=== PATIENT | female | born 1965 | race African-American/Black ===

== ENCOUNTER 2016-06-28 22:15 | Inpatient (IN) | payer OTHER ==
[2016-06-28 22:38] VITALS: BMI 27.8
--- NOTE | 2016-06-28 22:57 | HP ---
COWS - Scale Resting Pulse: 1= [place] 81-100 Sweatin= Chills/Flushing Restless Observation: 5= Unable to Sit Still Pupil Size: 1= Pupils >than Normal Bone or Joint Aches: 2= Severe Diffuse Aches Runny Nose/ Eye Tearin= None GI Upset > 30mins: 1= Stomach Cramp Tremor Observation: 2= Slight Tremor Visible Yawning Observation: 0= None Anxiety or Irritability: 4=Extreme Anxiety Goose Flesh Skin: 0=Smooth Skin COWS Score: 17 CIWA Score - CIWA Score Nausea/Vomitin-Mild Nausea/No Vomiting Muscle Tremors: 2 Anxiety: 4-Mod. Anxious/Guarded Agitation: 4-Moderately Restless Paroxysmal Sweats: 2 Orientation: 1-Uncertain about Date Tacttile Disturbances: 0-None Auditory Disturbances: 0-None Visual Disturbances: 0-None Headache: 1-Very Mild CIWA-Ar Total Score: 15 Admission ROS BHS - HPI Chief Complaint: WITHDRAWAL SX'S. SEEKING DETOX Allergies/Adverse Reactions: Allergies Allergy/AdvReac Type Severity Reaction Status Date / Time No Known Allergies Allergy Verified 06/28/16 22:46 History of Present Illness: 51 Y.O FEMALE WITH H/O ALCOHOLISM AND OPIATE DEPENDENCE HERE FOR DETOX TXMENT. CLIENT DENIES AND RECENT DETOX/ REHAB SERVICES. STATES LONGEST CLEAN 4 YEARS RELAPSING 1.5 YEARS AGO. CLIENT INFORMED EXPECTED LOS IS 7 DAYS. CLIENT VERBALIZED UNDERSTANDING AND AGREES. Exam Limitations: No Limitations - Ebola screening Have you traveled outside of the country in the last 21 days: No Have you had contact with anyone from an Ebola affected area: No Have you been sick,other than usual withdrawal symptoms: No Do you have a fever: No - Review of Systems Constitutional: Chills, Malaise, Night Sweats EENT: reports: No Symptoms Reported Respiratory: reports: No Symptoms reported Cardiac: reports: No Symptoms Reported GI: reports: Abdominal cramping : reports: No Symptoms Reported Musculoskeletal: reports: No Symptoms Reported Integumentary: reports: No Symptoms Reported Neuro: reports: No Symptoms reported Endocrine: reports: No Symptoms Reported Hematology: reports: No Symptoms Reported Other Systems: Reviewed and Negative Patient History - Patient Medical History Hx Anemia: No Hx Asthma: No Hx Chronic Obstructive Pulmonary Disease (COPD): No Hx Cancer: No Hx Cardiac Disorders: No Hx Hypertension: No Hx Hypercholesterolemia: No Hx Pacemaker: No HX Cerebrovascular Accident: No Hx Seizures: No Hx Diabetes: No Hx Gastrointestinal Disorders: No Hx Liver Disease: No Hx Genitourinary Disorders: No Hx Sexually Transmitted Disorders: No Hx Renal Disease (ESRD): No Hx Human Immunodeficiency Virus (HIV): No Hx Hepatitis C: No Hx Depression: Yes (SEROQUEL) Hx Suicide Attempt: No Hx Schizophrenia: No Other Medical History: DENIES - Patient Surgical History Past Surgical History: No Hx Neurologic Surgery: No Hx Cataract Extraction: No Hx Cardiac Surgery: No Hx Lung Surgery: No Hx Breast Surgery: No Hx Breast Biopsy: No Hx Abdominal Surgery: No Hx Appendectomy: No Hx Cholecystectomy: No Hx Genitourinary Surgery: No Hx Section: No Hx Orthopedic Surgery: No Anesthesia Reaction: No - PPD History Previous Implant?: Yes Documented Results: Negative w/o proof Implanted On Prior [facility] Admission?: No PPD to be Administered?: Yes - Reproductive History Patient is a Female of Child Bearing Age (11 -55 yrs old): Yes LMP comment: MENAPAUSE Patient : No - Smoking Cessation Smoking history: Current every day smoker Have you smoked in the past 12 months: Yes Aproximately how many cigarettes per day: 15 Cigars Per Day: 0 Hx Chewing Tobacco Use: No Initiated information on smoking cessation: Yes 'Breaking Loose' booklet given: 06/28/16 - Substance & Tx. History Hx Alcohol Use: Yes Hx Substance Use: Yes Substance Use Type: Alcohol, Cocaine, Heroin, Opiates (OXY), Tranquilizers (TCA) Hx Substance Use Treatment: Yes ([facility]) - Substances Abused Heroin Route: Inhalation Frequency: Daily Amount used: 5 BAGS Age of first use: 30 Date of Last Use: 06/28/16 Alcohol Route: Oral Frequency: Daily Amount used: 5 PINTS OF VODKA Age of first use: 32 Date of Last Use: 06/28/16 Cocaine Route: Smoking Frequency: Daily Amount used: $20 Age of first use: 35 Date of Last Use: 06/26/16 Family Disease History - Family Disease History Family Disease History: [place]: Father (), Mother (BONE CA ) Admission Physical Exam BHS - Vital Signs Vital Signs: Vital Signs - 24 hr 06/28/16 22:36 Temperature 97.0 F L Pulse Rate 94 H Respiratory 20 Rate Blood Pressure 151/90 - Physical General Appearance: Yes: Appropriately Dressed, Irritable, Anxious HEENTM: Yes: Other (MISSING TEETH) Respiratory: Yes: Chest Non-Tender, Lungs Clear, Normal Breath Sounds, No Respiratory Distress, No Accessory Muscle Use Neck: Yes: No masses,lesions,Nodules, Supple, Trachea in good position Breast: Yes: Breast Exam Deferred Cardiology: Yes: Regular Rhythm, Regular Rate, S1, S2 Abdominal: Yes: Normal Bowel Sounds, Non Tender, Flat, Soft Genitourinary: Yes: Within Normal Limits Back: Yes: Normal Inspection Musculoskeletal: Yes: full range of Motion, Gait Steady Extremities: Yes: Normal Capillary Refill, Normal Range of Motion, Non-Tender, Tremors Neurological: Yes: sfdc solution architect II-XII NML intact, Alert, Motor Strength 5/5 Integumentary: Yes: Normal Color, Warm, Moist (PALMS) Lymphatic: Yes: Within Normal Limits - Diagnostic (1) Nicotine dependence Current Visit: Yes Status: Acute Qualifiers: Nicotine product type: cigarettes Substance use status: uncomplicated Qualified Code(s): F17.210 - Nicotine dependence, cigarettes, uncomplicated (2) Alcohol dependence with uncomplicated withdrawal Current Visit: Yes Status: Chronic (3) Opioid dependence with withdrawal Current Visit: Yes Status: Chronic (4) Cocaine dependence, uncomplicated Current Visit: Yes Status: Chronic Cleared for Admission [facility] - Detox or Rehab [facility] Level of Care: Medically Managed Detox Regimen/Protocol: Methadone/Librium [facility] Breath Alcohol Content Breath Alcohol Content: 0 Urine Pregancy Test - Result Urine Test Results: Negative- NO Line Present Urine Drug Screen - Results Drug Screen Negative: No Urine Drug Screen Results: DAISY-Cocaine, OPI-Opiates, TCA-Tricyclic Antidepress, OXY-Oxycodone
[2016-06-28] MEDS ORDERED: P-EPHED 60MG/TRIPROLIDI 2.5MG TABLET PO PRN (23:09)
[2016-06-28] MEDS ORDERED: LOPERAMIDE HCL 2 MG CAPSULE PO PRN (23:09)
[2016-06-28] MEDS ORDERED: MAGNESIUM CITRATE 300 ML BOTTLE PO PRN (23:09)
[2016-06-28] MEDS ORDERED: NICOTINE POLACRILEX 2 MG GUM BUC PRN (23:09)
[2016-06-28] MEDS ORDERED: chlordiazePOXIDE HCL 25 MG CAPSULE PO PRN (23:09)
[2016-06-28] MEDS ORDERED: MAG HYDROX/AL HYDROX/SIMETH 30 ML UNIT-DOSE CUP PO PRN (23:09)
[2016-06-28] MEDS ORDERED: IBUPROFEN 400 MG TABLET (FP) PO PRN (23:09)
[2016-06-28] MEDS ORDERED: MAGNESIUM HYDROX 2400MG/30ML ORAL SUSPENSION 30 ML CUP PO PRN (23:09)
[2016-06-28] MEDS ORDERED: METHADONE HCL 10 MG TABLET (FOR DETOX USE ONLY) PO ONE (23:09)
[2016-06-28] MEDS ORDERED: diphenhydrAMINE HCL 50 MG CAPSULE PO PRN (23:09)
[2016-06-28] MEDS ORDERED: MENTHOL/PHENOL 1 EACH UD MM PRN (23:09)
[2016-06-28] MEDS ORDERED: guaiFENesin/D-METHORPHAN HB 10 ML UNIT-DOSE CUPS PO PRN (23:09)
[2016-06-28] MEDS: chlordiazePOXIDE HCL 25 MG CAPSULE PO SCH (23:47)
[2016-06-28] MEDS: METHADONE HCL 10 MG TABLET (FOR DETOX USE ONLY) PO ONE (23:48)
[2016-06-29] MEDS: chlordiazePOXIDE HCL 25 MG CAPSULE PO SCH ×4 (06:01→22:22)
--- NOTE | 2016-06-29 08:09 | CONSULT ---
[facility] Psychiatric Consult - Data Date of interview: 06/29/16 Admission source: [facility] Identifying data: This is 51 years old female with history of Bi-polar Disorder , history of Psychiatric hospitalization, intoxicated with: Alcohol and Cocaine Substance Abuse History: - Smoking Cessation. Smoking history: Current every day smoker. Have you smoked in the past 12 months: Yes. Aproximately how many cigarettes per day: 15. Cigars Per Day: 0. Hx Chewing Tobacco Use: No. Initiated information on smoking cessation: Yes. 'Breaking Loose' booklet given : 06/28/16. - Substance & Tx. History. Hx Alcohol Use: Yes. Hx Substance Use : Yes. Substance Use Type: Alcohol, Cocaine, Heroin, Opiates (OXY), Tranquilizers (TCA). Hx Substance Use Treatment: Yes ([facility]). - Substances Abused. Heroin. Route: Inhalation. Frequency: Daily. Amount used: 5 BAGS. Age of first use: 30. Date of Last Use: 06/28/16. Alcohol. Route: Oral. Frequency: Daily. Amount used: 5 PINTS OF VODKA. Age of first use: 32. Date of Last Use: 06/28/16. Cocaine. Route: Smoking. Frequency: Daily. Amount used: $20. Age of first use: 35. Date of Last Use: 06/26/16 Medical History: Denies significant medical issues Psychiatric History: Patient reports to carry Bipolar Disorder with most recent psychiatric hospitalization on more then 5 years ago, reports currently stable on: Trazodone 100mg po qhs. Seroquel 100mg po qhs. Gabapentin 300mg po tid Physical/Sexual Abuse/Trauma History: Denies Additional Comment: Trazodone 100mg po qhs. Seroquel 100mg po qhs. Gabapentin 300mg po tid Mental Status Exam - Mental Status Exam Alert and Oriented to: Person Cognitive Function: Fair Patient Appearance: Well Groomed Mood: Suspicious Affect: Mood Congruent Patient Behavior: Cooperative Speech Pattern: Appropriate Voice Loudness: Normal Thought Process: Goal Oriented Thought Disorder: Being Controlled Hallucinations: Denies Suicidal Ideation: Denies Homicidal Ideation: Denies Insight/Judgement: Fair Sleep: Difficulty falling asleep Appetite: Fair Muscle strength/Tone: Normal Gait/Station: Normal Additional Comments: Trazodone 100mg po qhs. Seroquel 100mg po qhs. Gabapentin 300mg po tid Psychiatric Findings - Problem List ([place] 1, 2,3) (1) Nicotine dependence Current Visit: Yes Status: Acute Qualifiers: Nicotine product type: cigarettes Substance use status: uncomplicated Qualified Code(s): F17.210 - Nicotine dependence, cigarettes, uncomplicated (2) Alcohol dependence with uncomplicated withdrawal Current Visit: Yes Status: Chronic (3) Cocaine dependence, uncomplicated Current Visit: Yes Status: Chronic (4) Opioid dependence with withdrawal Current Visit: Yes Status: Chronic (5) Bipolar disorder Current Visit: Yes Status: Acute (6) Drug-induced mood disorder Current Visit: Yes Status: Acute - Initial Treatment Plan Initial Treatment Plan: Trazodone 100mg po qhs. Seroquel 100mg po qhs. Gabapentin 300mg po tid
[2016-06-29] MEDS ORDERED: METHADONE HCL 10 MG TABLET (FOR DETOX USE ONLY) PO SCH (10:00)
[2016-06-29 10:12] LABS: MCH 29.3 pg (25.7-33.7); MCHC 33.5 g/dl (32.0-36.0); MEAN CELL VOLUME 87.3 fl (80-96); MEAN PLT VOLUME 7.5 fl (7.5-11.1); PLATELET COUNT 143 K/MM3 (134-434); WHITE BLOOD COUNT 3.4 K/mm3 (4.0-10.0)
[2016-06-29] MEDS: PRENATAL VITAMINS W/ FOLIC ACID TABLET (FP) PO SCH (10:13)
[2016-06-29] MEDS: NICOTINE 14 MG/24 HOURS TOPICAL PATCH TD SCH (10:13)
[2016-06-29] MEDS: QUEtiapine FUMARATE 100 MG TABLET (FP) PO SCH (10:13)
[2016-06-29 10:44] LABS: ALBUMIN 2.8 g/dl (3.4-5.0); ALK PHOS 64 U/L (45-117); ANION GAP 8 (8-16); BILIRUBIN,TOTAL 0.3 mg/dL (0.2-1.0); CALCIUM 8.6 mg/dL (8.5-10.1); CO2 31 mmol/L (21-32); CREATININE 0.7 mg/dL (0.55-1.02); GLUCOSE,RANDOM 70 mg/dL (74-106); SGOT/AST 13 U/L (15-37); SGPT/ALT 21 U/L (12-78); TOT PROT 5.1 g/dl (6.4-8.2)
--- NOTE | 2016-06-29 12:00 | PN ---
S CIWA - CIWA Score Nausea/Vomitin-Mild Nausea/No Vomiting Muscle Tremors: 4-Moderate,w/Arms Extend Anxiety: 2 Agitation: 1-Slight > Activity Paroxysmal Sweats: 3 Orientation: 0-Oriented Tacttile Disturbances: 2-Mild Itch/Numbness/Burn Auditory Disturbances: 1-Very Mild Visual Disturbances: 0-None Headache: 0-None Present CIWA-Ar Total Score: 14 BHS COWS - Scale Resting Pulse: 0= [place] 80 or Below Sweatin=Flushed/Facial Moisture Restless Observation: 0= Sits Still Pupil Size: 0= Normal to Room Light Bone or Joint Aches: 2= Severe Diffuse Aches Runny Nose/ Eye Tearin= Nasal Congestion GI Upset > 30mins: 0= None Tremor Observation of Outstretched Hands: 2= Slight Tremor Visible Yawning Observation: 1= 1-2x During Session Anxiety or Irritability: 2=Irritable/Anxious Goose Flesh Skin: 3=Piloerection COWS Score: 13 S Progress Note (SOAP) Subjective: Sweating, Tremors, Body Aches. Objective: PT. A & O X 2 (Pt. disoriented about Location). 06/29/16 11:57 Vital Signs Temperature 96.8 F L 06/29/16 09:37 Pulse Rate 76 06/29/16 09:37 Respiratory Rate 16 06/29/16 09:37 Blood Pressure 137/60 06/29/16 09:37 O2 Sat by Pulse Oximetry (%) Laboratory Last Values WBC 3.4 K/mm3 (4.0-10.0) L 06/29/16 06:45 RBC 3.75 M/mm3 (3.60-5.2) 06/29/16 06:45 Hgb 11.0 GM/dL (10.7-15.3) 06/29/16 06:45 Hct 32.7 % (32.4-45.2) 06/29/16 06:45 MCV 87.3 fl (80-96) 06/29/16 06:45 MCHC 33.5 g/dl (32.0-36.0) 06/29/16 06:45 RDW 14.0 % (11.6-15.6) 06/29/16 06:45 Plt Count 143 K/MM3 (134-434) 06/29/16 06:45 MPV 7.5 fl (7.5-11.1) 06/29/16 06:45 Sodium 142 mmol/L (136-145) 06/29/16 06:45 Potassium 3.6 mmol/L (3.5-5.1) 06/29/16 06:45 Chloride 103 mmol/L (98-107) 06/29/16 06:45 Carbon Dioxide 31 mmol/L (21-32) 06/29/16 06:45 Anion Gap 8 (8-16) 06/29/16 06:45 BUN 10 mg/dL (7-18) 06/29/16 06:45 Creatinine 0.7 mg/dL (0.55-1.02) 06/29/16 06:45 Creat Clearance w eGFR > 60 (>60) 06/29/16 06:45 Random Glucose 70 mg/dL (74-106) L 06/29/16 06:45 Calcium 8.6 mg/dL (8.5-10.1) 06/29/16 06:45 Total Bilirubin 0.3 mg/dL (0.2-1.0) 06/29/16 06:45 AST 13 U/L (15-37) L 06/29/16 06:45 ALT 21 U/L (12-78) 06/29/16 06:45 Alkaline Phosphatase 64 U/L (45-117) 06/29/16 06:45 Total Protein 5.1 g/dl (6.4-8.2) L 06/29/16 06:45 Albumin 2.8 g/dl (3.4-5.0) L 06/29/16 06:45 RPR Titer Nonreactive (NONREACTIVE) 06/29/16 06:45 LABS NOTED. Assessment: 06/29/16 11:58 WITHDRAWAL SYMPTOMS. Plan: CONTINUE DETOX.
[2016-06-29 14:29] LABS: URINE APPEARANCE CLEAR; URINE BILIRUBIN NEGATIVE (NEGATIVE); URINE BLOOD NEGATIVE (NEGATIVE); URINE COLOR COLORLESS; URINE GLUCOSE (UA) NEGATIVE (NEGATIVE); URINE KETONE NEGATIVE (NEGATIVE); URINE LEUK ESTERASE NEGATIVE (NEGATIVE); URINE NITRITE NEGATIVE (NEGATIVE); URINE PROTEIN NEGATIVE (NEGATIVE); URINE UROBILINOGEN NEGATIVE E.U./dl (0.2-1.0)
--- NOTE | 2016-06-29 17:37 | EKG ---
Test Reason : Blood Pressure : / mmHG Vent. Rate : 084 BPM Atrial Rate : 084 BPM P-R Int : 140 ms QRS Dur : 088 ms QT Int : 370 ms P-R-T Axes : 063 013 045 degrees QTc Int : 437 ms NORMAL SINUS RHYTHM BIATRIAL ENLARGEMENT ABNORMAL ECG NO PREVIOUS ECGS AVAILABLE Confirmed by ROBIN SANCHEZ, MARIE ([id number]) on 06/29/2016 5:36:44 PM Referred By: Confirmed By:MARIE KELLY MD
[2016-06-29] MEDS: THIAMINE HCL 100 MG TABLET (FP) PO SCH (22:22)
[2016-06-29] MEDS: QUEtiapine FUMARATE 300 MG TABLET PO SCH (22:22)
[2016-06-30] MEDS: chlordiazePOXIDE HCL 25 MG CAPSULE PO SCH ×3 (05:53→18:03)
[2016-06-30] MEDS: hydrOXYzine PAMOATE 50 MG CAPSULE (FP) PO PRN ×2 (08:43→19:14)
[2016-06-30] MEDS: ACETAMINOPHEN 325 MG TABLET (FP) PO PRN ×2 (08:43→19:14)
--- NOTE | 2016-06-30 10:15 | PN ---
S CIWA - CIWA Score Nausea/Vomitin Muscle Tremors: 2 Anxiety: 4-Mod. Anxious/Guarded Agitation: 2 Paroxysmal Sweats: 3 Orientation: 0-Oriented Tacttile Disturbances: 0-None Auditory Disturbances: 0-None Visual Disturbances: 1-Very Mild Sensitivity Headache: 2-Mild CIWA-Ar Total Score: 16 S Progress Note (SOAP) Subjective: BOLIVAR WANTS TO LEAVE BUT EVIDENCED FROM HER CIWA AND PER HER REPORT IS ANXIOUS, NOT SLEEPING AND SHAKY Objective: 06/30/16 10:14 Laboratory Tests 06/29/16 06/29/16 06/29/16 06:45 06:45 06:45 WBC 3.4 L RBC 3.75 Hgb 11.0 Hct 32.7 MCV 87.3 MCHC 33.5 RDW 14.0 Plt Count 143 MPV 7.5 Sodium 142 Potassium 3.6 Chloride 103 Carbon Dioxide 31 Anion Gap 8 BUN 10 Creatinine 0.7 Creat Clearance w eGFR > 60 Random Glucose 70 L Calcium 8.6 Total Bilirubin 0.3 AST 13 L ALT 21 Alkaline Phosphatase 64 Total Protein 5.1 L Albumin 2.8 L Urine Color Urine Appearance Urine pH Ur Specific [place] Urine Protein Urine Glucose (UA) Urine Ketones Urine Blood Urine Nitrite Urine Bilirubin Urine Urobilinogen Ur Leukocyte Esterase RPR Titer Nonreactive 06/29/16 12:20 WBC RBC Hgb Hct MCV MCHC RDW Plt Count MPV Sodium Potassium Chloride Carbon Dioxide Anion Gap BUN Creatinine Creat Clearance w eGFR Random Glucose Calcium Total Bilirubin AST ALT Alkaline Phosphatase Total Protein Albumin Urine Color Colorless Urine Appearance Clear Urine pH 8.0 Ur Specific [place] 1.004 Urine Protein Negative Urine Glucose (UA) Negative Urine Ketones Negative Urine Blood Negative Urine Nitrite Negative Urine Bilirubin Negative Urine Urobilinogen Negative Ur Leukocyte Esterase Negative RPR Titer Vital Signs - 24 hr 06/29/16 06/29/16 06/29/16 15:06 20:26 22:30 Temperature 98.1 F 99.3 F 97.9 F Pulse Rate 62 68 63 Respiratory 18 18 16 Rate Blood Pressure 126/84 114/68 131/88 06/30/16 06/30/16 06/30/16 00:30 03:30 06:00 Temperature 96.1 F L Pulse Rate 59 L Respiratory 18 18 18 Rate Blood Pressure 140/76 Assessment: 06/30/16 10:14 ONGIONG WITHDRAWAL Plan: CONTINUE DETOX PROTOCOL
[2016-06-30] MEDS: NICOTINE 14 MG/24 HOURS TOPICAL PATCH TD SCH (10:39)
[2016-06-30] MEDS: QUEtiapine FUMARATE 100 MG TABLET (FP) PO SCH (10:40)
[2016-06-30] MEDS: METHADONE HCL 5 MG TABLET (FOR DETOX USE ONLY) PO SCH (10:40)
[2016-06-30] MEDS: PRENATAL VITAMINS W/ FOLIC ACID TABLET (FP) PO SCH (10:41)
[2016-06-30] MEDS: THIAMINE HCL 100 MG TABLET (FP) PO SCH (22:24)
[2016-06-30] MEDS: QUEtiapine FUMARATE 300 MG TABLET PO SCH (22:24)
[2016-06-30] MEDS: chlordiazePOXIDE 5 MG CAPSULE PO SCH (22:24)
[2016-07-01] MEDS: ACETAMINOPHEN 325 MG TABLET (FP) PO PRN (04:08)
[2016-07-01] MEDS: hydrOXYzine PAMOATE 50 MG CAPSULE (FP) PO PRN (04:08)
[2016-07-01] MEDS: chlordiazePOXIDE 5 MG CAPSULE PO SCH ×2 (07:17→10:34)
[2016-07-01] MEDS ORDERED: CYCLOBENZAPRINE HCL 10 MG TABLET (FP) PO PRN (09:10)
[2016-07-01] MEDS ORDERED: cloNIDine HCL 0.1 MG TABLET PO SCH (10:00)
[2016-07-01 10:10] VITALS: BP 135/85; PULSE 72; TEMP 98.4
[2016-07-01] MEDS: PRENATAL VITAMINS W/ FOLIC ACID TABLET (FP) PO SCH (10:34)
[2016-07-01] MEDS: QUEtiapine FUMARATE 100 MG TABLET (FP) PO SCH (10:34)
[2016-07-01] MEDS: METHADONE HCL 5 MG TABLET (FOR DETOX USE ONLY) PO SCH (10:34)
[2016-07-01] MEDS: NICOTINE 14 MG/24 HOURS TOPICAL PATCH TD SCH (10:39)
--- NOTE | 2016-07-01 11:11 | PN ---
BHS Progress Note (SOAP) Subjective: ALERT,IRRITABLE,ANXIOUS,PAIN IN THE BODY AND BACK,INTERRUPTED SLEEP Objective: 07/01/16 11:10 Vital Signs Temperature 98.4 F 07/01/16 10:09 Pulse Rate 72 07/01/16 10:09 Respiratory Rate 16 07/01/16 10:09 Blood Pressure 135/85 07/01/16 10:09 O2 Sat by Pulse Oximetry (%) Assessment: 07/01/16 11:10 WITHDRAWAL SYMPTOM Plan: CONTINUE DETOX
--- NOTE | 2016-07-01 11:13 | PN ---
S Progress Note Note: PATIENT DID NOT WANT TO COMPLETE TREATMENT,SIGNED RELEASE AMA,FOLLOW UP WITH PMD FOR MEDICAL PROBLEM
--- NOTE | 2016-07-01 11:17 | DS ---
[facility] Detox Discharge Summary Admission Date: 06/28/16 Discharge Date: 07/01/16 - History Present History: Alcohol Dependence, Cocaine Dependence, Opioid Dependence Additional Comments: PATIENT DID NOT WANT TO COMPLETE TREATMENT,SIGNED RELEASE AMA,ADVISE FOLLOW UP WITH PMD FOR MEDICAL PROBLEM AND OWN PSYCHIATRIST Pertinent Past History: BIPOLAR DISORDER - Physical Exam Results Vital Signs: Vital Signs Temperature 98.4 F 07/01/16 10:09 Pulse Rate 72 07/01/16 10:09 Respiratory Rate 16 07/01/16 10:09 Blood Pressure 135/85 07/01/16 10:09 O2 Sat by Pulse Oximetry (%) Pertinent Admission Physical Exam Findings: WITHDRAWAL SYMPTOM - Medication Discharge Medications: Ambulatory Orders Quetiapine Fumarate [Seroquel -] 300 mg PO HS 06/28/16 Quetiapine Fumarate [Seroquel] 100 mg PO DAILY 06/28/16 Quetiapine Fumarate [Seroquel -] 300 mg PO HS #30 tab 06/29/16 Quetiapine Fumarate [Seroquel] 100 tab PO DAILY #30 tablet 06/29/16 - AMA Did Patient Leave Against Medical Advice: Yes
[2016-07-01] MEDS ORDERED: chlordiazePOXIDE HCL 10 MG CAPSULE PO SCH (23:00)
[2016-07-02] MEDS ORDERED: METHADONE HCL 10 MG TABLET (FOR DETOX USE ONLY) PO SCH (10:00)
[2016-07-03] MEDS ORDERED: METHADONE HCL 5 MG TABLET (FOR DETOX USE ONLY) PO SCH (06:00)
== END 2016-07-01 11:50 | disposition left against medical advice (07) | DRG 770 ==
LOC: YASAS 22:15 → Y6N 23:03
PROVIDERS: ADMIT Internal Medicine Addiction Medicine; ATTEND Internal Medicine Addiction Medicine
PROC: HZ2ZZZZ Detoxification Services for Substance Abuse Treatment (ICD-10-PCS; principal; 2016-07-01)
DX: F11.23 Opioid dependence with withdrawal (principal); F10.230 Alcohol dependence with withdrawal, uncomplicated; F14.20 Cocaine dependence, uncomplicated; F17.210 Nicotine dependence, cigarettes, uncomplicated; F19.24 Other psychoactive substance dependence with psychoactive substance-induced mood disorder; F31.9 Bipolar disorder, unspecified
CPT/HCPCS: 36415; 80053; 81003; 85027; 86593; 93005; 93010